=== PATIENT | female | born 1960 | race Caucasian/White ===

== ENCOUNTER 2017-05-13 15:17 | Emergency (ER) | payer SELFPAY ==
[~2017-05-13] VITALS: Ht 157.5 cm; Wt 56.8 kg
[2017-05-13 15:40] VITALS: BP 118/75
[2017-05-13] MEDS ORDERED: CEPHALEXIN MONOHYDRATE 500 MG CAPSULE PO ONE (16:00)
== END 2017-05-13 16:15 | disposition home or self-care (01) ==
LOC: EMS 15:24
DX: S61.531A Puncture wound without foreign body of right wrist, initial encounter (principal); L03.113 Cellulitis of right upper limb; R03.0 Elevated blood-pressure reading, without diagnosis of hypertension; F17.210 Nicotine dependence, cigarettes, uncomplicated; W20.8XXA Other cause of strike by thrown, projected or falling object, initial encounter; Y93.89 Activity, other specified; Y92.89 Other specified places as the place of occurrence of the external cause; Y99.8 Other external cause status
CPT/HCPCS: 99283

== ENCOUNTER 2020-01-17 00:11 | Emergency (ER) | payer MEDICAID ==
[~2020-01-17] VITALS: Ht 157.5 cm; Wt 56.8 kg
[2020-01-17 00:54] VITALS: BP 146/90
== END 2020-01-17 02:00 | disposition home or self-care (01) ==
LOC: EMS 00:12
DX: L03.317 Cellulitis of buttock (principal); L02.31 Cutaneous abscess of buttock

== ENCOUNTER 2022-03-09 21:38 | Emergency (ER) | payer MEDICAID, OTHER ==
[~2022-03-09] VITALS: Ht 157.5 cm; Wt 56.8 kg
[2022-03-09] MEDS ORDERED: SULF-261 PO (22:08)
[2022-03-09] MEDS ORDERED: CEPH-558 PO (22:08)
[2022-03-09 22:30] VITALS: BP 119/66
== END 2022-03-09 23:05 | disposition home or self-care (01) ==
LOC: EMS 21:48
DX: L08.9 Local infection of the skin and subcutaneous tissue, unspecified (principal); B95.62 Methicillin resistant Staphylococcus aureus infection as the cause of diseases classified elsewhere; F17.210 Nicotine dependence, cigarettes, uncomplicated
CPT/HCPCS: 99283; Z7502